=== PATIENT | male | born 1930 | race Caucasian/White ===

== ENCOUNTER → 2019-08-02 | Outpatient (CLI) | payer MEDICARE, OTHER ==
[~2019-08-02] MED LIST: AMBIEN 10 MG TA10 MG PO; AMLODIPINE BESYL5 M1 PO; ASPIRIN81 M2 PO; CLONIDINE0.1 PO; COREG CR20 MG PO; HYDRALAZINE 2525 M1 PO; HYDRALAZINE 5050 MG PO; IMDUR 30 MG TAB30 M1 PO; LISINOPRIL40 MG PO; LOPRESSOR25; SIMVASTATIN40 MG PO; ZOLPIDEM TART12.5 M1 PO
--- NOTE | 2019-08-02 16:51 | CARDNUC ---
[place] [address] CARDIAC NUCLEAR IMAGING REPORT Name: LEANNA HARVEY Room: [facility]#: [id number] Admission: 08/02/19 Attend Phys: Cuauhtemoc Rene, Discharge: Date of : [birth year] Date of Service: 08/02/19 1648 Report #: [id number] THIS REPORT FOR: cc: CAITLYN CURTIS MD, TIMOTHY N. MD Liston, Michael J. MD [facility] ~ APPROVED REPORT Study performed: 08/02/2019 14:50:07 Exam: Nuclear Stress Test Indication: Dyspnea Patient Location: Out-Patient Stress Tech: Brittaney Hernandez Stress Nurse: Stephanie Brenner RN Ht: 6 ft 0 in Wt: 201 lbs BSA: 2.14 m2 BMI: 27.25 Medical History Medical History: CAD s/p CABG, HTN, Hyperlipidemia, RBBB Medications: amlodipine, asa-81, carvedilol, lisinopril, simvastatin Allergies: codeine Cardiac Risk Factors: Age, FHX of CAD, HTN, Hyperlipidemia Previous Cardiac Procedures: CABG Exercise History: Indeterminate Meds Held (24 hrs): carvedilol Stress Test Details Stress Test: Pharmacologic stress testing performed using 0.4 mg of regadenoson per 5 mL given IV over 10 seconds. Reason for pharmacologic stress test: physical limitation. HR Resting HR: 49 bpm Max Heart Rate (APMHR): 131 bpm Max HR Achieved: 66 bpm Target HR (85% APMHR): 111 bpm % of APMHR: 50 Recovery HR: 63 bpm BP Resting BP: 129/65 mmHg Max BP: 153/63 [place] [address] CARDIAC NUCLEAR IMAGING REPORT Name: LEANNA HARVEY Room: [facility]#: [id number] Admission: 08/02/19 Attend Phys: Cuauhtemoc Rene, Discharge: Date of : [birth year] Date of Service: 08/02/19 1648 Report #: [id number] ECG Resting ECG: Sinus Rhythm Stress ECG: Sinus Rhythm ST Change: None Arrhythmia: None Recovery ECG: Sinus Rhythm Recovery ST Change: None Recovery Arrhythmia: None Clinical Reason for Termination: Completed protocol Exercise duration: 0 min sec Exercise capacity: 1 METs The patient tolerated Lexiscan infusion without significant cardiac symptoms. Nurse Comments pt too unsteady on feet to walk on treadmill Stress ECG Conclusion Baseline twelve-lead EKG shows sinus rhythm with no significant ST segment abnormalities. EKGs obtained during and post Lexiscan infusion show sinus rhythm with no significant ST segment changes when compared to baseline. There were no significant stress-induced arrhythmias. NM EXAM: Myocardial Perfusion REST/STRESS Imaging Protocol: Rest Tc-99m/Stress Tc-99m 1 day Resting Data Rest SPECT myocardial perfusion imaging was performed in supine position 30 minutes following the intravenous injection of 10.5 mCi of Tc-99m Sestamibi. Time of rest injection: 13:15 The images were gated to evaluate regional wall motion and calculate left ventricular ejection fraction. Administration Route: IV Administration Site: Right Arm Pharmacologic Stress Pharmacologic stress test was performed by injecting Regadenoson 0.4 mg IV push followed by the intravenous injection of 30.8 mCi of Tc-99m Sestamibi. Time of stress injection: 14:45 Administration Route: IV Administration Site: [place] [address] CARDIAC NUCLEAR IMAGING REPORT Name: LEANNA HARVEY Room: [facility]#: [id number] Admission: 08/02/19 Attend Phys: Cuauhtemoc Rene, Discharge: Date of : [birth year] Date of Service: 08/02/19 1648 Report #: [id number] Heart Rate at time of stress injection: 66 bpm. Gated Stress SPECT was performed 40 minutes after stress injection. The images were gated to evaluate regional wall motion and calculate left ventricular ejection fraction. Prone imaging was performed. Study Quality Study: Good Artifact: No artifact Study Data At rest, the left ventricular ejection fraction was 57%.. Post stress, the left ventricular ejection was 58%.. TID = 0.97. Perfusion There were no significant fixed or reversible defects noted on perfusion images. Wall Motion Normal left ventricular wall motion. Nuclear Conclusion ECG Findings: negative for ischemia Clinical Findings: negative for ischemia Nuclear Findings: negative for ischemia Exercise Capacity: not assessed Left Ventricular Function: normal Risk Study: low Myocardial perfusion images show no defect to suggest infarct or ischemia. Left ventricular systolic function appears normal on gated studies. This is a low risk study. <Conclusion> Baseline twelve-lead EKG shows sinus rhythm with no significant ST segment abnormalities. EKGs obtained during and post Lexiscan infusion show sinus rhythm with no significant ST segment changes when compared to baseline. There were no significant stress-induced arrhythmias. <ELECTRONICALLY SIGNED> By: Cuauhtemoc Rene MD, FACC 08/02/19 1648 47 Cuauhtemoc Rene MD, FACC /INF
== END ==
LOC: M.NUC 07-19 11:03
DX: I25.10 Atherosclerotic heart disease of native coronary artery without angina pectoris (principal); Z95.1 Presence of aortocoronary bypass graft

== ENCOUNTER → 2019-09-12 | Outpatient (CLI) | payer MEDICARE, OTHER ==
[2019-09-12 13:12] LABS: CALCIUM 8.3 mg/dL (8.5-10.1); CREATININE 1.7 mg/dL (0.6-1.3); POTASSIUM 4.7 mmol/L (3.5-5.1)
== END ==
LOC: M.LAB 12:21
PROVIDERS: ATTEND Internal Medicine Cardiovascular Disease
DX: I10 Essential (primary) hypertension (principal)